=== PATIENT | female | born 1940 | race Caucasian/White ===

== ENCOUNTER 2018-01-22 20:22 | Emergency (ER) | payer MEDICARE ==
[~2018-01-22] VITALS: Ht 152.4 cm; Wt 85.4 kg
[~2018-01-22 20:22] MED LIST: ASPI-515 PO; ATOR40TA78 PO; DIPH1TAB PO; EPINEPHRINE SYRINGE 0.1 MG/ML, 10ML ONE; INSU100I17 SQ; LISI-170 PO; METO50TA82 PO
[2018-01-22] MEDS ORDERED: CODE BLUE RESPONSE XX ONE (20:43)
[2018-01-22 20:45] LABS: MEAN CORPUSCULAR HEMOGLOBIN 29.1 pg (27.0-34.8); MEAN CORPUSCULAR HGB CONC 32.1 g/dL (32.4-35.8); MEAN CORPUSCULAR VOLUME 90.6 fL (80-100); RED BLOOD COUNT 4.91 x10^6/uL (3.82-5.3); RED CELL DISTRIBUTION WIDTH 16.5 % (9.6-15.2)
[2018-01-22 20:51] LABS: INTERNATIONAL NORMALIZED RATIO 1.41 (0.93-1.1); PROTHROMBIN TIME 14.4 Seconds (9.6-11.5)
[2018-01-22 20:55] LABS: ALANINE AMINOTRANSFERASE 30 U/L (12-78); ANION GAP 11 mmol/L (5-15); CALCIUM 6.7 mg/dL (8.5-10.1); CHLORIDE 113 mmol/L (98-107); CREATININE 1.13 mg/dL (0.55-1.02)
[2018-01-22] MEDS ORDERED: PROPOFOL 100 ML IV ONE (20:56)
[2018-01-22 20:58] LABS: MD YES; MEAN PLATELET VOLUME 10.6 fL (7.4-10.4); PLATELET COUNT 70 x10^3/uL (130-400)
[2018-01-22 20:59] LABS: ALKALINE PHOSPHATASE 124 U/L (45-117); BILIRUBIN,TOTAL 0.3 mg/dL (0.2-1.0)
[2018-01-22 21:00] LABS: TROPONIN I 0.842 ng/mL (0.000-0.045)
[2018-01-22] MEDS ORDERED: SODIUM CHLORIDE FLUSH 10ML SYR IVF ONE (21:00)
[2018-01-22] MEDS ORDERED: EPINEPHRINE 1 MG/ML, 1ML IVPush ONE (21:00)
[2018-01-22] MEDS ORDERED: CALCIUM CHLORIDE 10%, 10ML SYR IVPush ONE (21:00)
[2018-01-22] MEDS ORDERED: SODIUM BICARB 8.4%, 50ML SYRINGE IVPush ONE (21:00)
[2018-01-22] MEDS ORDERED: SODIUM CHLORIDE 0.9% 1,000ML IVBOLUS ONE ×2 (21:00→21:30)
[2018-01-22 21:02] LABS: LYMPH#(MANUAL) 5.18 x10^3/uL (1-3.4); LYMPHS% (MANUAL) 37 % (22-44); MONOS#(MANUAL) 0.98 x10^3/uL (0.3-2.7); MONOS% (MANUAL) 7 % (2-9); NRBC % (MANUAL) 2 % (0-1); REACTIVE LYMPHS # (MANUAL) 1.26 x10^3/uL (0-0); REACTIVE LYMPHS % (MANUAL) 9 % (0-0); SEG#(MANUAL) 6.58 x10^3/uL (1.8-6.8); SEGS% (MANUAL) 47 % (42-75)
[2018-01-22 21:03] LABS: <PLATELET ESTIMATE> DECREASED; ANISOCYTOSIS 1+; LARGE PLATELETS 1+; OVALOCYTES 1+
[2018-01-22] MEDS ORDERED: PROPOFOL 100 ML IV PRN (21:03)
[2018-01-22] MEDS ORDERED: ASPIRIN 300 MG SUPP PR ONE (21:30)
[2018-01-22] MEDS ORDERED: CEFTRIAXONE PMX 1GM/50ML 50 ML IVPB ONE (21:30)
[2018-01-22 22:52] VITALS: BP 0/0
== END 2018-01-22 22:55 | disposition expired ==
LOC: MERGE 20:22 → EDBD 20:22 → EDSEX 20:22 → ED 20:57
DX: I46.9 Cardiac arrest, cause unspecified (principal); T68.XXXA Hypothermia, initial encounter; E87.2 Acidosis; D72.829 Elevated white blood cell count, unspecified; I10 Essential (primary) hypertension; E11.9 Type 2 diabetes mellitus without complications; I25.10 Atherosclerotic heart disease of native coronary artery without angina pectoris; E78.00 Pure hypercholesterolemia, unspecified; Z85.3 Personal history of malignant neoplasm of breast
CPT/HCPCS: 36415; 36600; 51702; 71045; 80047; 80053; 82803; 83605; 83880; 84145; 84484; 85025; 85610; 85730; 87070; 87181; 87184; 87205; 92950; 93005; 99291; J7030; 94002